=== PATIENT | female | born 1975 | race Caucasian/White ===

== ENCOUNTER → 2018-03-15 | Outpatient (CLI) | payer BC ==
[~2018-03-15] MED LIST: ADDERALL XR20 MG PO; CLARINEX D PO; ENBREL25 MG SC; ESCITALOPRAM; FOLIC ACID; LORTAB 5/500 501 TAB PO; METHOTREXA2.5 MG/TAB PO; NEURONTIN100 MG PO; PRENATAL1 TA1 PO; SULFASALAZINE500 MG PO; [UNRECOGNIZED DRUG - OTHER]
== END ==
LOC: MC.RAD 16:53
DX: Z12.31 Encounter for screening mammogram for malignant neoplasm of breast (principal)

== ENCOUNTER → 2022-03-09 | Outpatient (CLI) | payer BC | LOC: MC.RAD 12:54 | DX: N63.41 Unspecified lump in right breast, subareolar (principal) ==